=== PATIENT | female | born 1955 | race Caucasian/White ===

== ENCOUNTER 2017-03-23 20:21 | Emergency (ER) | payer OTHER ==
[2017-03-24] MEDS: HYDROCODONE/APAP (5/325) TAB PO (02:05)
== END 2017-03-24 04:30 | disposition home or self-care (01) ==
LOC: FTE 20:21
DX: M54.9 Dorsalgia, unspecified (principal); I10 Essential (primary) hypertension; M54.2 Cervicalgia; R51 Headache; Z79.82 Long term (current) use of aspirin
CPT/HCPCS: 71020; 93005; 99284-25

== ENCOUNTER 2018-03-16 08:25 | Emergency (ER) | payer OTHER ==
[2018-03-16] MEDS: IBUPROFEN 800 MG TAB PO (09:16)
== END 2018-03-16 10:34 | disposition home or self-care (01) ==
LOC: FTE 08:25
DX: M25.512 Pain in left shoulder (principal); I10 Essential (primary) hypertension; Z79.82 Long term (current) use of aspirin
CPT/HCPCS: 73030; 99283-25

== ENCOUNTER 2018-07-25 03:24 | Emergency (ER) | payer OTHER ==
[2018-07-25] MEDS: MECLIZINE 12.5 MG TAB PO (04:12)
[2018-07-25] MEDS: LORAZEPAM 2 MG INJ IV (04:12)
[2018-07-25 04:15] LABS: ADD MAN DIFF? NO
[2018-07-25 04:18] LABS: WHITE BLOOD COUNT 12.1 10^3/ul (4.8-10.8)
[2018-07-25 04:18] LABS: BASOPHIL # 0.1 10^3/ul (0.0-0.1); BASOPHILS % 0.4 % (0.0-2.0); EOSINOPHILS # 0.2 10^3/ul (0.0-0.5); EOSINOPHILS % 1.6 % (0.0-7.0); HEMATOCRIT 43.5 % (37.0-47.0); HEMOGLOBIN 14.6 g/dl (12.0-16.0); LYMPHOCYTES # 1.7 10^3/ul (0.8-2.9); LYMPHOCYTES % 13.9 % (15.0-51.0); MEAN CORPUSCULAR HEMOGLOBIN 30.7 pg (29.0-33.0); MEAN CORPUSCULAR HGB CONC 33.6 g/dl (32.0-37.0); MEAN CORPUSCULAR VOLUME 91.6 fl (82.0-101.0); MEAN PLATELET VOLUME 9.4 fl (7.4-10.4); MONOCYTE # 0.5 10^3/ul (0.3-0.9); NEUTROPHIL # 9.6 10^3/ul (1.6-7.5); NEUTROPHILS % 79.4 % (39.0-77.0); PLATELET COUNT 280 10^3/UL (140-415); RED BLOOD COUNT 4.75 10^6/ul (4.20-5.40); RED CELL DISTRIBUTION WIDTH 11.8 % (11.5-14.5)
[2018-07-25 04:36] LABS: ANION GAP 11 (5-13); BLOOD UREA NITROGEN 15 mg/dl (7-20); CALCIUM 9.6 mg/dl (8.4-10.2); CARBON DIOXIDE 26 mmol/L (21-31); CHLORIDE 107 mmol/L (97-110); CREATININE 0.57 mg/dl (0.44-1.00); Estimated GFR > 60 mL/min (>60); GLUCOSE 147 mg/dl (70-220); SODIUM 144 mmol/L (135-144)
[2018-07-25 04:48] LABS: TROPONIN-I < 0.012 ng/ml (0.000-0.120)
== END 2018-07-25 05:27 | disposition home or self-care (01) ==
LOC: E/R 03:24
DX: I16.0 Hypertensive urgency (principal); I10 Essential (primary) hypertension; H81.399 Other peripheral vertigo, unspecified ear; Z79.82 Long term (current) use of aspirin
CPT/HCPCS: 36415; 70450; 80048; 84484; 85025; 93005; 96374; 99285-25